=== PATIENT | male | born 1955 | race Caucasian/White ===

== ENCOUNTER 2021-04-20 11:05 | Emergency (ER) | payer OTHER ==
[2021-04-20] MEDS ORDERED: Sodium Chloride 0.9% 10 ML Syringe FLUSH PRN ×2 (12:01→12:07)
[2021-04-20] MEDS ORDERED: Iopamidol 612 MG/ML 100 ML Bottle IVPUSH ONE (12:07)
[2021-04-20 12:18] LABS: CORONAVIRUS COVID-19 NAA NEGATIVE (NEGATIVE)
--- NOTE | 2021-04-20 12:20 | EDM.PDOC ---
ED HPI GENERAL MEDICAL PROBLEM - General Chief Complaint: Eye Problems Stated Complaint: EYE PAIN Time Seen by Provider: 04/20/21 11:31 Source of Information: Reports: Patient, Old Records History Limitations: Reports: No Limitations - History of Present Illness INITIAL COMMENTS - FREE TEXT/NARRATIVE: Patient sent over from his cushion builder/insurance consultant for proptosis, eye irr itation, concern for thyrotoxicosis, keratoconjunctivitis patient has been dealing with this since February when he first had some left eye irritation and itchiness and was started on some eyedrops. Then over the last 3 weeks is gotten to the point where 2 weeks ago he was seen and evaluated by Dr. Casillas the insurance consultant in [place] and he was concerned that he needed to have emergent or urgent follow-up at [facility] with a Dr. Swati Early. Found to have concern for thyroid disease and proptosis from that. Patient has increasing eye pain since Tuesday, April 17 and "made it through the weekend" till he can see his physician today. Sent over for more imaging evaluation and consideration whether patient may benefit from following up with Dr. Early in [facility]. Patient describes left eye pain, does have some mild headache around the eye behind the eye and across his forehead. No fevers chills or sweats no coughing cold symptoms or sore throat has chronic tinnitus nothing new no ear pain no sinus congestion no sore throat no coughing cold symptoms chest pain or breathing problems no nausea vomiting or diarrhea. Patient has otherwise been fairly healthy, denies any allergies to medications his mother still living and healthy siblings that are living and healthy as well. Quality: Reports: Ache Improves with: Reports: None Worsens with: Reports: None Treatments INCIDENT RESPONSE CONSULTANT: Reports: Other (see below) Left Eye Pain Score (Numeric/FACES): 7 - Related Data Allergies Allergy/AdvReac Type Severity Reaction Status Date / Time No Known Allergies Allergy Verified 04/20/21 11:24 Home Meds: Home Meds Cefuroxime [Ceftin] 250 mg PO BID #14 tablet 04/20/21 [Rx] Levothyroxine 125 mcg PO ASDIRECTED 04/20/21 [History] methylPREDNISolone [Medrol Dose Pack] 4 mg PO DAILY #1 dospk 04/20/21 [Rx] Past Medical History - Past Health History Medical/Surgical History: Denies Medical/Surgical History Social & Family History - Tobacco Use Tobacco Use Status *Q: Never Tobacco User Second Hand Smoke Exposure: No - Caffeine Use Caffeine Use: Reports: Coffee - Recreational Drug Use Recreational Drug Use: No ED ROS GENERAL - Review of Systems Review Of Systems: See Below (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 Denies: Ear Pain, Hearing Loss, Nosebleed, Nose Pain, Rhinitis, Sinus Problem, Throat Pain, Throat Swelling, Vertigo Respiratory: Reports: No Symptoms. Denies: Shortness of Breath, Cough Cardiovascular: Denies: Chest Pain, Lightheadedness, Palpitations, Syncope GI/Abdominal: Reports: No Symptoms. Denies: Abdominal Pain, Diarrhea, Decreased Appetite, Vomiting : Reports: No Symptoms Musculoskeletal: Reports: No Symptoms. Denies: Neck Pain Skin: Reports: No Symptoms. Denies: Rash Neurological: Reports: No Symptoms, Headache. Denies: Dizziness, Seizure, Syncope, Trouble Speaking, Difficulty Walking, Gait Disturbance Psychiatric: Reports: No Symptoms ED EXAM GENERAL W FULL EYE - Physical Exam Exam: See Below Exam Limited By: No Limitations General Appearance: Alert, WD/WN, No Apparent Distress Eye Exam: Left Eye: Abnormal EOM, Abnormal Pupil, Conjunctival Injection, Periorbital Changes, Proptosis, Vision Changes Eyelids: Left: Edema Conjunctiva & Sclera: Left: Conjunctival Edema, Injected Pupillary Reaction: Right: Brisk, Left: Sluggish Nose: Normal Inspection Throat/Mouth: Normal Inspection, Normal Gums, Normal Oropharynx Head: Atraumatic Neck: Normal Inspection, Supple, Non-Tender, Full Range of Motion Respiratory/Chest: No Respiratory Distress, Lungs Clear, Normal Breath Sounds Cardiovascular: Normal Peripheral Pulses, Regular Rate, Rhythm, No Edema GI/Abdominal: Normal Bowel Sounds, Soft, No Mass. No: Tender Extremities: Normal Inspection Neurological: Alert, Oriented, CN II-XII Intact Psychiatric: Normal Affect Skin Exam: Warm, Dry Course - Vital Signs Last Recorded V/S: Last Vital Signs Temp 96.9 F 04/20/21 11:21 Pulse 82 04/20/21 11:21 Resp 18 04/20/21 11:21 BP 134/82 04/20/21 11:21 Pulse Ox 100 04/20/21 11:21 - Orders/Labs/Meds Orders: Active Orders 24 hr Category Date Time Status Peripheral IV Care [RC] . DIRECTED Care 04/20/21 12:03 Active Sodium Chloride 0.9% [Saline Flush] Med 04/20/21 12:01 Active 10 ml FLUSH ASDIRECTED PRN Sodium Chloride 0.9% [Saline Flush] Med 04/20/21 12:07 Active 10 ml FLUSH ONETIME PRN Peripheral IV Insertion Adult [OM.PC] Stat Oth 04/20/21 12:01 Ordered Medication Orders Sodium Chloride (Sodium Chloride 0.9% 10 Ml Syringe) 10 ml FLUSH ASDIRECTED PRN PRN Reason: Keep Vein Open Sodium Chloride (Sodium Chloride 0.9% 10 Ml Syringe) 10 ml FLUSH ONETIME PRN PRN Reason: IV FLUSH Last Admin: 04/20/21 13:04 Dose: 10 ml Documented by: KATHERINE Labs: Laboratory Tests 04/20/21 04/20/21 04/20/21 Range/Units 11:25 12:10 12:10 WBC 6.44 (4.23-9.07) K/mm3 RBC 4.92 (4.63-6.08) M/mm3 Hgb 14.4 (13.7-17.5) gm/dl Hct 44.1 (40.1-51.0) % MCV 89.6 (79.0-92.2) fl MCH 29.3 (25.7-32.2) pg MCHC 32.7 (32.2-35.5) g/dl RDW Std Deviation 42.4 (35.1-43.9) fL Plt Count 257 (163-337) K/mm3 MPV 9.7 (9.4-12.3) fl Neut % (Auto) 74.5 H (34.0-67.9) % Lymph % (Auto) 12.1 L (21.8-53.1) % Hunt % (Auto) 7.9 (5.3-12.2) % Eos % (Auto) 4.8 (0.8-7.0) Baso % (Auto) 0.5 (0.1-1.2) % Neut # (Auto) 4.80 (1.78-5.38) K/mm3 Lymph # (Auto) 0.78 L (1.32-3.57) K/mm3 Hunt # (Auto) 0.51 (0.30-0.82) K/mm3 Eos # (Auto) 0.31 (0.04-0.54) K/mm3 Baso # (Auto) 0.03 (0.01-0.08) K/mm3 Sodium 141 (136-145) mEq/L Potassium 4.3 (3.5-5.1) mEq/L Chloride 103 (98-107) mEq/L Carbon Dioxide 31 (21-32) mEq/L Anion Gap 11.3 (5-15) BUN 25 H (7-18) mg/dL Creatinine 0.9 (0.7-1.3) mg/dL Est Cr Clr Drug Dosing 99.10 mL/min Estimated GFR (MDRD) > 60 (>60) mL/min BUN/Creatinine Ratio 27.8 H (14-18) Glucose 82 (70-99) mg/dL Calcium 8.7 (8.5-10.1) mg/dL Total Bilirubin 0.6 (0.2-1.0) mg/dL AST 17 (15-37) U/L ALT 21 (16-63) U/L Alkaline Phosphatase 82 (46-116) U/L C-Reactive Protein 0.3 (<1.0) mg/dL Total Protein 7.7 (6.4-8.2) g/dl Albumin 4.0 (3.4-5.0) g/dl Globulin 3.7 gm/dL Albumin/Globulin Ratio 1.1 (1-2) Free T4 (0.76-1.46) ng/dL TSH 3rd Generation 0.037 L (0.358-3.74) uIU/mL Influenza Type A RNA Negative (NEGATIVE) Influenza Type B RNA Negative (NEGATIVE) SARS-CoV-2 RNA (TAYLOR) Negative (NEGATIVE) 04/20/21 Range/Units 12:10 WBC (4.23-9.07) K/mm3 RBC (4.63-6.08) M/mm3 Hgb (13.7-17.5) gm/dl Hct (40.1-51.0) % MCV (79.0-92.2) fl MCH (25.7-32.2) pg MCHC (32.2-35.5) g/dl RDW Std Deviation (35.1-43.9) fL Plt Count (163-337) K/mm3 MPV (9.4-12.3) fl Neut % (Auto) (34.0-67.9) % Lymph % (Auto) (21.8-53.1) % Hunt % (Auto) (5.3-12.2) % Eos % (Auto) (0.8-7.0) Baso % (Auto) (0.1-1.2) % Neut # (Auto) (1.78-5.38) K/mm3 Lymph # (Auto) (1.32-3.57) K/mm3 Hunt # (Auto) (0.30-0.82) K/mm3 Eos # (Auto) (0.04-0.54) K/mm3 Baso # (Auto) (0.01-0.08) K/mm3 Sodium (136-145) mEq/L Potassium (3.5-5.1) mEq/L Chloride (98-107) mEq/L Carbon Dioxide (21-32) mEq/L Anion Gap (5-15) BUN (7-18) mg/dL Creatinine (0.7-1.3) mg/dL Est Cr Clr Drug Dosing mL/min Estimated GFR (MDRD) (>60) mL/min BUN/Creatinine Ratio (14-18) Glucose (70-99) mg/dL Calcium (8.5-10.1) mg/dL Total Bilirubin (0.2-1.0) mg/dL AST (15-37) U/L ALT (16-63) U/L Alkaline Phosphatase (46-116) U/L C-Reactive Protein (<1.0) mg/dL Total Protein (6.4-8.2) g/dl Albumin (3.4-5.0) g/dl Globulin gm/dL Albumin/Globulin Ratio (1-2) Free T4 1.67 H (0.76-1.46) ng/dL TSH 3rd Generation (0.358-3.74) uIU/mL Influenza Type A RNA (NEGATIVE) Influenza Type B RNA (NEGATIVE) SARS-CoV-2 RNA (TAYLOR) (NEGATIVE) Meds: Medications Generic Name Dose Route Start Last Admin Trade Name Ilda PRN Reason Stop Dose Admin Sodium Chloride 10 ml 04/20/21 12:01 Sodium Chloride 0.9% 10 Ml Syringe FLUSH ASDIRECTED PRN Keep Vein Open Sodium Chloride 10 ml 04/20/21 12:07 04/20/21 13:04 Sodium Chloride 0.9% 10 Ml Syringe FLUSH 10 ml ONETIME PRN Administration IV FLUSH Discontinued Medications Generic Name Dose Route Start Last Admin Trade Name Ilda PRN Reason Stop Dose Admin Iopamidol 100 ml 04/20/21 12:07 04/20/21 13:04 Iopamidol 612 Mg/Ml 100 Ml Bottle IVPUSH 04/20/21 12:08 100 ml ONETIME ONE Administration - Re-Assessments/Exams Free Text/Narrative Re-Assessment/Exam: 04/20/21 12:22 Viewed the information from the insurance consultant/cushion builder in [facility]. I got a hold of the specialist name we will go and screen basic lab work-up and evaluation CT of the orbit for now, anticipate need to consult these other more specialty insurance consultant regarding disposition. 04/20/21 13:25 White blood cell count 6400 hemoglobin 14.4 hematocrit 44 platel et count is 257,074% neutrophils sodium 141 potassium 4.3 chloride 103 CO2 31 BUN is 25 creatinine 0.9 glucose is 82 liver function tests are normal TSH is 0.037 influenza and Covid are negative patient stable at present 04/20/21 14:[address] Casillas. Recommends steroid medrol dosepak. erthyromycin q 3hours, Ceftin 250 bid for 7 days. Follow up in office 04/20/21 15:09 I discussed the case with Dr. Mccurdy and recommends either coming to [facility] in the next 24 hours or following up at the local ophthalmology office. Patient will follow-up tomorrow at [address] Simeon, will start eye lubrication, continue the erythromycin ointment regularly along with Ceftin 250 twice a day for 7-day course to prevent cellulitis/periorbital cellulitis. Return precautions given Departure - Departure Time of Disposition: 15:10 Disposition: Home, Self-Care 01 Condition: Fair Clinical Impression: Proptosis due to thyroid disorder - Discharge Information Referrals: PCP,None [Primary Care Provider] - 1 Day (See Dr. Valdez [facility] at [facility] [place] office at 3 PM [place] April 21, 2021 [phone]) Forms: ED Department Discharge Additional Instructions: Make sure you continue use erythromycin eyedrops/ointment every 3 hours while awake to prevent infection. Dr. Casillas recommended Medrol Dosepak to take as directed for anti-inflammatory effect, he also recommends antibiotics to prevent eye infection and recommend Ceftin 250 mg twice a day for 7 days. They would like to see you at their [facility] [place] office at 3:[address] Valdez. Return if any increasing pain, vision loss, headaches, fevers, swelling or worsening. Sepsis Event Note (ED) - Focused Exam Vital Signs: Vital Signs Temp Pulse Resp BP Pulse Ox 04/20/21 11:21 96.9 F 82 18 134/82 100 - My Orders Last 24 Hours: My Active Orders 04/20/21 12:01 Sodium Chloride 0.9% [Saline Flush] 10 ml FLUSH ASDIRECTED PRN Peripheral IV Insertion Adult [OM.PC] Stat 04/20/21 12:03 Peripheral IV Care [RC] . DIRECTED 04/20/21 12:07 Sodium Chloride 0.9% [Saline Flush] 10 ml FLUSH ONETIME PRN - Assessment/Plan Last 24 Hours: My Active Orders 04/20/21 12:01 Sodium Chloride 0.9% [Saline Flush] 10 ml FLUSH ASDIRECTED PRN Peripheral IV Insertion Adult [OM.PC] Stat 04/20/21 12:03 Peripheral IV Care [RC] . DIRECTED 04/20/21 12:07 Sodium Chloride 0.9% [Saline Flush] 10 ml FLUSH ONETIME PRN
--- NOTE | 2021-04-20 13:30 | CT ---
CT orbits Technique: Multiple axial sections through the orbits were obtained. Intravenous contrast was utilized. Reconstructed coronal and sagittal images were obtained. Bone window settings also were obtained. Comparison: No prior orbital imaging is available. Findings: Left globe shows significant proptosis in relation to the right globe. Rectus muscles are diffusely thickened on the left side as compared to the right side. Optic nerves are symmetric between right and left sides. Veins within the retrobulbar region appear more prominent than seen on the right side. There is also hazy density within the retro-bulbar fat as compared to the right side. Both right and left globes are symmetric in size. Visualized portions of the intracranial structures show no discrete abnormality. Cavernous sinuses are symmetrically enhanced between right and left sides which are normal. Mild mucosal thickening seen within the maxillary sinuses as well as ethmoid sinuses and frontal sinuses. No air-fluid levels are seen. Impression: 1. Left globe shows significant unilateral proptosis. There is thickening of the rectus muscles on the left side as well as mild increased density within the retrobulbar fat. Slightly prominent venous structures are seen within the posterior left-sided retrobulbar fat. Both globes appear symmetric between right and left sides. 2. Etiology of above findings are unknown. Please correlate if patient has clinical symptoms to indicate an etiology. Diagnostic code #3
== END 2021-04-20 16:00 | disposition home or self-care (01) ==
LOC: JD.ED 11:05
DX: E05.00 Thyrotoxicosis with diffuse goiter without thyrotoxic crisis or storm (principal); Z20.822 Contact with and (suspected) exposure to COVID-19
CPT/HCPCS: 0240U; 36415; 70481; 80053; 84439; 84443; 85025; 86140; 99284; Q9967

== ENCOUNTER 2021-08-07 09:30 | Inpatient (IN) | payer OTHER ==
[2021-08-07] MEDS ORDERED: Piperacillin/Tazobactam 4.5 GM in Sodium Chloride 0.9% 100 ML IV ONE (11:42)
[2021-08-07] MEDS: Lactated Ringers 1,000 ML IV SCH ×2 (12:20→20:14)
[2021-08-07 12:37] LABS: CORONAVIRUS COVID-19 NAA NEGATIVE (NEGATIVE)
[2021-08-07] MEDS ORDERED: Acetaminophen 325 MG Tab PO PRN (13:29)
[2021-08-07] MEDS ORDERED: Ondansetron 4 MG/2 ML SDV IV PRN (13:29)
[2021-08-07] MEDS ORDERED: guaiFENesin 100 MG/5 ML Soln 10 ML UD Cup PO PRN (13:46)
[2021-08-07] MEDS: Piperacillin/Tazobactam 4.5 GM in Sodium Chloride 0.9% 100 ML IV SCH (18:23)
[2021-08-08] MEDS: Piperacillin/Tazobactam 4.5 GM in Sodium Chloride 0.9% 100 ML IV SCH ×2 (01:31→09:42)
[2021-08-08] MEDS: Lactated Ringers 1,000 ML IV SCH ×2 (04:19→12:22)
[2021-08-08] MEDS ORDERED: Levothyroxine 125 MCG Tab PO SCH (06:00)
[2021-08-08] MEDS ORDERED: Enoxaparin 40 MG/0.4 ML Syringe SUBCUT SCH (09:00)
== END 2021-08-08 14:39 | disposition home or self-care (01) | DRG 177 ==
LOC: JD.ED 09:30 → JD.MS 13:07
PROVIDERS: ADMIT Internal Medicine; ATTEND Internal Medicine
DX: J69.0 Pneumonitis due to inhalation of food and vomit (principal); J96.01 Acute respiratory failure with hypoxia; M87.180 Osteonecrosis due to drugs, jaw; I95.9 Hypotension, unspecified; E05.00 Thyrotoxicosis with diffuse goiter without thyrotoxic crisis or storm; E03.9 Hypothyroidism, unspecified; J18.9 Pneumonia, unspecified organism; T50.8X5A Adverse effect of diagnostic agents, initial encounter; R09.02 Hypoxemia; Z85.22 Personal history of malignant neoplasm of nasal cavities, middle ear, and accessory sinuses; K57.90 Diverticulosis of intestine, part unspecified, without perforation or abscess without bleeding; Z79.52 Long term (current) use of systemic steroids; Z85.89 Personal history of malignant neoplasm of other organs and systems; R13.10 Dysphagia, unspecified; Z92.3 Personal history of irradiation; Z98.890 Other specified postprocedural states; Z20.822 Contact with and (suspected) exposure to COVID-19; Z79.890 Hormone replacement therapy; Z79.899 Other long term (current) drug therapy
CPT/HCPCS: 0241U; 36415; 71045; 80048; 80053; 81003; 83605; 84443; 84484; 85025; 85027; 87040; 93005; 94667; 94761; 96365; 99285; 93010; 99284; A9270-GY; J1650; J2543; J7120

== ENCOUNTER 2021-10-30 10:10 | Inpatient (IN) | payer OTHER ==
[2021-10-30] MEDS ORDERED: Lactated Ringers 1,000 ML IV ONE (11:21)
[2021-10-30] MEDS ORDERED: Lactated Ringers 1,000 ML IV SCH ×2 (13:30→15:00)
[2021-10-30] MEDS ORDERED: Piperacillin/Tazobactam 4.5 GM in Sodium Chloride 0.9% 100 ML IV ONE (14:13)
[2021-10-30] MEDS ORDERED: Sodium Chloride 0.9% 100 ML ONE (14:15)
[2021-10-30] MEDS ORDERED: Piperacillin/Tazobactam 4.5 GM in Sodium Chloride 0.9% 100 ML IV SCH (14:15)
[2021-10-30] MEDS ORDERED: Albuterol 0.083% 2.5 MG/3 ML Neb Soln NEB PRN (15:00)
[2021-10-30] MEDS ORDERED: Ondansetron 4 MG/2 ML SDV IV PRN (15:00)
[2021-10-30] MEDS ORDERED: Enoxaparin 40 MG/0.4 ML Syringe SUBCUT SCH (15:00)
[2021-10-30] MEDS ORDERED: guaiFENesin/Dextromethorphan 100-10 MG/5 ML Soln 5 ML Cup PO SCH (15:00)
[2021-10-30] MEDS ORDERED: Acetaminophen/HYDROcodone 325-5 MG Tab PO PRN (15:00)
[2021-10-30] MEDS ORDERED: Acetaminophen 325 MG Tab PO PRN (15:00)
[2021-10-30] MEDS: Albuterol/Ipratropium 3.0-0.5 MG/3 ML Neb Soln NEB SCH ×2 (16:29→21:43)
[2021-10-30] MEDS: Dextrose 5%-0.9% NaCl 1,000 ML IV SCH (17:08)
[2021-10-30] MEDS: Heparin Sodium 5,000 Units/ML Vial SUBCUT SCH (17:10)
[2021-10-30] MEDS: guaiFENesin 600 MG Tab.ER PO SCH (21:53)
[2021-10-30] MEDS: Piperacillin/Tazobactam 4.5 GM in Sodium Chloride 0.9% 100 ML IV SCH (22:22)
[2021-10-31] MEDS: Heparin Sodium 5,000 Units/ML Vial SUBCUT SCH ×3 (00:29→15:08)
[2021-10-31] MEDS: Dextrose 5%-0.9% NaCl 1,000 ML IV SCH ×4 (00:53→18:47)
[2021-10-31] MEDS: Piperacillin/Tazobactam 4.5 GM in Sodium Chloride 0.9% 100 ML IV SCH ×3 (06:49→21:51)
[2021-10-31] MEDS: Levothyroxine 88 MCG Tab PO SCH ×2 (06:50→11:51)
[2021-10-31] MEDS: Albuterol/Ipratropium 3.0-0.5 MG/3 ML Neb Soln NEB SCH ×4 (07:03→20:51)
[2021-10-31] MEDS: guaiFENesin 600 MG Tab.ER PO SCH ×3 (09:05→21:47)
[2021-10-31] MEDS: Acetylcysteine 20% 200 MG/ML 4 ML Nebulizer Soln SDV NEB SCH ×2 (15:49→21:58)
[2021-11-01] MEDS: Heparin Sodium 5,000 Units/ML Vial SUBCUT SCH ×3 (00:11→15:46)
[2021-11-01] MEDS: Dextrose 5%-0.9% NaCl 1,000 ML IV SCH ×2 (04:47→19:35)
[2021-11-01] MEDS: Piperacillin/Tazobactam 4.5 GM in Sodium Chloride 0.9% 100 ML IV SCH ×3 (06:28→21:00)
[2021-11-01] MEDS: Levothyroxine 88 MCG Tab PO SCH (06:29)
[2021-11-01] MEDS: Albuterol/Ipratropium 3.0-0.5 MG/3 ML Neb Soln NEB SCH ×4 (06:40→20:22)
[2021-11-01] MEDS: Acetylcysteine 20% 200 MG/ML 4 ML Nebulizer Soln SDV NEB SCH ×4 (07:08→21:17)
[2021-11-01] MEDS: guaiFENesin 600 MG Tab.ER PO SCH ×2 (08:39→20:47)
[2021-11-02] MEDS: Heparin Sodium 5,000 Units/ML Vial SUBCUT SCH ×2 (00:49→09:08)
[2021-11-02] MEDS: Albuterol/Ipratropium 3.0-0.5 MG/3 ML Neb Soln NEB SCH ×2 (06:03→09:24)
[2021-11-02] MEDS: Acetylcysteine 20% 200 MG/ML 4 ML Nebulizer Soln SDV NEB SCH ×2 (06:33→09:24)
[2021-11-02] MEDS: Piperacillin/Tazobactam 4.5 GM in Sodium Chloride 0.9% 100 ML IV SCH (06:38)
[2021-11-02] MEDS: Levothyroxine 88 MCG Tab PO SCH (06:39)
[2021-11-02] MEDS: Dextrose 5%-0.9% NaCl 1,000 ML IV SCH (09:51)
[2021-11-02] MEDS: guaiFENesin 600 MG Tab.ER PO SCH (10:00)
== END 2021-11-02 16:45 | disposition home or self-care (01) | DRG 871 ==
LOC: JD.ED 10:10 → JD.ICU 14:20
PROVIDERS: ADMIT Pediatrics; ATTEND Internal Medicine
DX: A41.9 Sepsis, unspecified organism (principal); J69.0 Pneumonitis due to inhalation of food and vomit; J96.01 Acute respiratory failure with hypoxia; R64 Cachexia; Z85.89 Personal history of malignant neoplasm of other organs and systems; E46 Unspecified protein-calorie malnutrition; D84.9 Immunodeficiency, unspecified; Z92.3 Personal history of irradiation; T66.XXXA Radiation sickness, unspecified, initial encounter; Z20.822 Contact with and (suspected) exposure to COVID-19; Z86.711 Personal history of pulmonary embolism; K57.90 Diverticulosis of intestine, part unspecified, without perforation or abscess without bleeding; G89.29 Other chronic pain; M54.9 Dorsalgia, unspecified; M54.2 Cervicalgia; R51.9 Headache, unspecified; E03.9 Hypothyroidism, unspecified; C09.0 Malignant neoplasm of tonsillar fossa; E05.80 Other thyrotoxicosis without thyrotoxic crisis or storm; Z98.890 Other specified postprocedural states; R13.14 Dysphagia, pharyngoesophageal phase; E88.09 Other disorders of plasma-protein metabolism, not elsewhere classified; Z68.21 Body mass index [BMI] 21.0-21.9, adult; Z79.890 Hormone replacement therapy; Z79.899 Other long term (current) drug therapy; Z90.89 Acquired absence of other organs; E55.9 Vitamin D deficiency, unspecified
CPT/HCPCS: 36415; 71045; 71250; 80053; 83605; 84145; 84443; 85025; 87040 ×2; 87635; J7120 ×2; 80048; 82947; 83735; 86140; 86922; 92526-GN; 92610-GN; 94640; 94667; 94668; 94760; 94761; 94762; 96360; 97116-GP; 97161-GP; 99284; 99285-25; A9270-GY; J1644; J2543; J7042; J7620-GY; U0002

== ENCOUNTER 2021-11-10 10:55 | Day surgery (SDC) | payer OTHER ==
[~2021-11-10 10:55] MED LIST: Lidocaine 1%/Sod Bicarbonate in NS 8.4% 1 ML Syringe IDERM PRN; Sodium Chloride 0.9% 10 ML Syringe FLUSH PRN; Sodium Chloride 0.9% 10 ML Syringe FLUSH SCH
[2021-11-10] MEDS: Lactated Ringers 1,000 ML IV SCH ×2 (11:30→16:27)
[2021-11-10] MEDS ORDERED: Midazolam 1 MG/ML 2 ML SDV ONE (12:08)
[2021-11-10] MEDS ORDERED: Ketamine 500 mg/10 ML MDV ONE (12:08)
[2021-11-10] MEDS ORDERED: Benzocaine 20% Topical Spray UD MUCMEM ONE (12:15)
== END 2021-11-10 13:49 | disposition home or self-care (01) ==
LOC: JD.SDS 10:55
PROVIDERS: ATTEND Surgery
DX: R13.10 Dysphagia, unspecified (principal); K44.9 Diaphragmatic hernia without obstruction or gangrene; R63.4 Abnormal weight loss; E03.9 Hypothyroidism, unspecified; E55.9 Vitamin D deficiency, unspecified; J96.01 Acute respiratory failure with hypoxia; G89.29 Other chronic pain; E05.80 Other thyrotoxicosis without thyrotoxic crisis or storm; J69.0 Pneumonitis due to inhalation of food and vomit; E88.09 Other disorders of plasma-protein metabolism, not elsewhere classified; M54.9 Dorsalgia, unspecified; M54.2 Cervicalgia; R51.9 Headache, unspecified; Z79.899 Other long term (current) drug therapy; Z79.890 Hormone replacement therapy; Z98.890 Other specified postprocedural states; Z86.711 Personal history of pulmonary embolism
CPT/HCPCS: 43235; A9270; J2250; J3490; J7120

== ENCOUNTER 2022-08-06 22:46 | Emergency (ER) | payer OTHER | END 2022-08-06 23:00 | disposition left against medical advice (07) | LOC: JD.ED 22:46 | DX: Z53.21 Procedure and treatment not carried out due to patient leaving prior to being seen by health care provider (principal) ==